=== PATIENT | male | born 1950 | race Caucasian/White ===

== ENCOUNTER 2024-09-01 03:38 | Emergency (ER) | payer MEDICARE, OTHER, SELFPAY ==
[2024-09-01] VITALS (19 sets, daily range): BP systolic 135–160; BP diastolic 70–99; PULSE 74–109; RESP 12–23; TEMP 36.4–36.7; O2SAT 91–99
--- OUTSIDE RECORDS SUMMARY | 2024-09-01 03:40 | XMS_ITS | Data Portability ---
Author Organization [facility], Main Office Address [address] [place] [address] Assessment Encounter Date Assessment Date Assessment LastModified by Organization Details LastModified Time 04/30/2023 04/30/2023 Assessment: Severe OSAHS, AHI = 32 PLMD Lumbar spondylosis Plan: The following were reviewed and explained to the patient: primary care/referral note [facility] split night sleep study 09/10/22 AHI = 32, REM AHI = 37, Respironics large DreamWisp nasal mask @ 11 cmH2O, PLMI = 10 Non-pharmacologi c therapy options for periodic limb movement disorder include avoidance of aggravating drugs and substances, mental alerting activities, short daily hemodialysis for patients in renal failure, exercise, leg massage, stretching calf muscles, use of a weighted blanket and applied heat. Patient will cut down on caffeine intake. We will check BUN, Creatinine, Vitamin E, Vitamin B12, RBC folate, Iron, TIBC, Ferritin, ESR, Magnesium, Hgb and Hct levels. PAP compliance downloaded and interpreted x 20 minutes. Data reviewed and explained to the patient. Average apnea/hypopnea index (AHI) is 7.9. Patient used PAP > 4 hours 0% of the time. PAP is set at 13 cmH2O. PAP will be reset at 9-20 cmH2O. Oxygen supplementation: none Keep humidity at 5. Keep EPR at + 2. Patient is benefiting from PAP therapy. Encouraged patient to maintain PAP use more than 70% of the time. Statement of PAP use and benefits will be sent to the home care store. Unless his low back pain is addressed, he doesn't foresee using his CPAP for more hours. Educated the patient on problems and solutions associated with positive airway pressure (PAP) use. Difficulty tolerating pressure, mask leaks, intolerance of interface, nasal congestion, claustrophobic response, dry mouth, and unintentional mask removal during sleep were covered. Provided the patient with a list of local home care stores where positive airway pressure (PAP) units, accoutrement, and services are available. Home care store selection is based on patient's insurance carrier. Patient will setup an appointment with [facility] for supplies and pressure adjustments. A major predictor of success with use of PAP is follow-up with both the respiratory supplier and the treating physician. The respiratory supplier optimally will follow-up within two weeks after starting use while the treating physician optimally will follow-up within 90 days after starting therapy to assess adherence and effectiveness of treatment. The download results can show the treating physician information about adherence to treatment, residual AHI while on treatment and presence of large mask leakage. This information is especially helpful if the patient has residual sleepiness despite treatment. General information on sleep disordered breathing, evaluation of sleep disordered breathing, treatment with PAP therapy, and living with PAP therapy were covered. We discussed with the patient the impact of weight on: Sleep disordered breathing Hypertension Hyperlipidemia DM LAUREN Lumbosacral spondylosis We discussed with the patient the benefit of PAP therapy on: Sleep disordered breathing Rhinitis Hypertension Hyperlipidemia DM LAUREN Educated the patient on sleep hygiene measures. Relaxing rituals to rest easy, understanding foods with positive and negative impact on sleep, creating a peaceful sleep environment, timing of exercise, using herbal sleep aids, and practicing sleep-friendly meditation were covered. To determine how much sleep is needed, the patient will assess where he falls on the spectrum, examine what lifestyle factor such as stress is affecting the quality and quantity of sleep. In general, adults need 7-9 hours of sleep. Educated the patient regarding foods that promote sleep. These include but are not limited to cherries, bananas, toast, oatmeal, and warm milk. Educated the patient regarding foods and drinks to avoid before bedtime. These include but are not limited to aged cheese, chocolate, spicy foods, tomato-based sauces, soy, ginseng tea and processed meat. Advocated influenza vaccination annually and pneumonia vaccination VANDANA. Advocated weight loss through diet and exercise. Patient's ideal body weight according to height and gender is up to 180 lbs. Encouraged patient to adjust caloric intake to maintain/achieve ideal body weight, emphasizing on fruits, vegetables, whole grains, and fat-free or low-fat products. These include lean meats, poultry, fish, beans, eggs, and nuts and foods that are low in saturated fats, trans-fats, cholesterol, salt (sodium), and glycemic index. Stressed the importance of regular exercise up to the patient's capacity limits. In this case, we recommend 20 min daily walking, 2 days a week of resistance training. Patient to monitor BP daily and bring records to PCP for further management. Follow-up: 3 weeks Not available 04/30/2023 10:54:11 05/27/2023 05/27/2023 Assessment: Severe OSAHS, AHI = 32 PLMD Lumbar spondylosis Plan: The following were reviewed and explained to the patient: Lab data 04/30/23 [facility] split night sleep study 09/10/22 AHI = 32, REM AHI = 37, Respironics large DreamWisp nasal mask @ 11 cmH2O, PLMI = 10 Non-pharmacologi c therapy options for periodic limb movement disorder include avoidance of aggravating drugs and substances, mental alerting activities, short daily hemodialysis for patients in renal failure, exercise, leg massage, stretching calf muscles, use of a weighted blanket and applied heat. Patient will cut down on caffeine intake. BUN, Creatinine, Vitamin E, Vitamin B12, RBC folate, Iron, TIBC, Ferritin, ESR, Magnesium, Hgb and Hct levels are within normal limits. We will continue gabapentin at 100 mg nightly at bedtime c/o PCP. PAP compliance downloaded and interpreted x 20 minutes. Data reviewed and explained to the patient. Average apnea/hypopnea index (AHI) is 1.6. Patient used PAP > 4 hours 0% of the time. PAP is set at 9-20 cmH2O. PAP will be reset at 9 cmH2O. Oxygen supplementation: none Keep humidity at 5. Keep EPR at + 2. Keep ramp off. Patient is benefiting from PAP therapy. Encouraged patient to maintain PAP use more than 70% of the time. Statement of PAP use and benefits will be sent to the home care store. Unless his low back pain is addressed, he doesn't foresee using his CPAP for more hours. Educated the patient on problems and solutions associated with positive airway pressure (PAP) use. Difficulty tolerating pressure, mask leaks, intolerance of interface, nasal congestion, claustrophobic response, dry mouth, and unintentional mask removal during sleep were covered. Provided the patient with a list of local home care stores where positive airway pressure (PAP) units, accoutrement, and services are available. Home care store selection is based on patient's insurance carrier. Patient will setup an appointment with [facility] for supplies and pressure adjustments. A major predictor of success with use of PAP is follow-up with both the respiratory supplier and the treating physician. The download results can show the treating physician information about adherence to treatment, residual AHI while on treatment and presence of large mask leakage. This information is especially helpful if the patient has residual sleepiness despite treatment. General information on sleep disordered breathing, evaluation of sleep disordered breathing, treatment with PAP therapy, and living with PAP therapy were covered. We discussed with the patient the impact of weight on: Sleep disordered breathing Hypertension Hyperlipidemia DM LAUREN Lumbosacral spondylosis We discussed with the patient the benefit of PAP therapy on: Sleep disordered breathing Rhinitis Hypertension Hyperlipidemia DM LAUREN Educated the patient on sleep hygiene measures. Relaxing rituals to rest easy, understanding foods with positive and negative impact on sleep, creating a peaceful sleep environment, timing of exercise, using herbal sleep aids, and practicing sleep-friendly meditation were covered. To determine how much sleep is needed, the patient will assess where he falls on the spectrum, examine what lifestyle factor such as stress is affecting the quality and quantity of sleep. In general, adults need 7-9 hours of sleep. Educated the patient regarding foods that promote sleep. These include but are not limited to cherries, bananas, toast, oatmeal, and warm milk. Educated the patient regarding foods and drinks to avoid before bedtime. These include but are not limited to aged cheese, chocolate, spicy foods, tomato-based sauces, soy, ginseng tea and processed meat. Advocated influenza vaccination annually and pneumonia vaccination VANDANA. Advocated weight loss through diet and exercise. Patient's ideal body weight according to height and gender is up to 180 lbs. Encouraged patient to adjust caloric intake to maintain/achieve ideal body weight, emphasizing on fruits, vegetables, whole grains, and fat-free or low-fat products. These include lean meats, poultry, fish, beans, eggs, and nuts and foods that are low in saturated fats, trans-fats, cholesterol, salt (sodium), and glycemic index. Stressed the importance of regular exercise up to the patient's capacity limits. In this case, we recommend 20 min daily walking, 2 days a week of resistance training. Patient to monitor BP daily and bring records to PCP for further management. Follow-up: 1 year, May 2024 Not available 05/27/2023 12:11:45 05/31/2024 05/31/2024 Assessment: Severe OSAHS, AHI = 32 PLMD Lumbar spondylosis Plan: The following were reviewed and explained to the patient: Lab data 04/30/23 [facility] split night sleep study 09/10/22 AHI = 32, REM AHI = 37, Respironics large DreamWisp nasal mask @ 11 cmH2O, PLMI = 10 Non-pharmacologi c therapy options for periodic limb movement disorder include avoidance of aggravating drugs and substances, mental alerting activities, short daily hemodialysis for patients in renal failure, exercise, leg massage, stretching calf muscles, use of a weighted blanket and applied heat. Patient will cut down on caffeine intake. BUN, Creatinine, Vitamin E, Vitamin B12, RBC folate, Iron, TIBC, Ferritin, ESR, Magnesium, Hgb and Hct levels are within normal limits. We will continue gabapentin at 100 mg nightly at bedtime c/o PCP. PAP compliance downloaded and interpreted x 20 minutes. Data reviewed and explained to the patient. Average apnea/hypopnea index (AHI) is 3.1. Patient used PAP > 4 hours 32% of the time. PAP is set at 9 cmH2O. PAP will remain at 9 cmH2O. Keep ramp off. 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 Keep humidity level at 5. Oxygen supplementation: none Patient is benefiting from PAP therapy. Encouraged patient to maintain PAP use more than 70% of the time. Statement of PAP use and benefits will be sent to the home care store. Unless his low back pain is addressed, he doesn't foresee using his CPAP for more hours. Educated the patient on problems and solutions associated with positive airway pressure (PAP) use. Difficulty tolerating pressure, mask leaks, intolerance of interface, nasal congestion, claustrophobic response, dry mouth, and unintentional mask removal during sleep were covered. Provided the patient with a list of local home care stores where positive airway pressure (PAP) units, accoutrement, and services are available. Home care store selection is based on patient's insurance carrier. Patient will setup an appointment with [facility] for supplies and pressure adjustments. A major predictor of success with use of PAP is follow-up with both the respiratory supplier and the treating physician. The download results can show the treating physician information about adherence to treatment, residual AHI while on treatment and presence of large mask leakage. This information is especially helpful if the patient has residual sleepiness despite treatment. General information on sleep disordered breathing, evaluation of sleep disordered breathing, treatment with PAP therapy, and living with PAP therapy were covered. We discussed with the patient the impact of weight on: Sleep disordered breathing Hypertension Hyperlipidemia DM LAUREN Lumbosacral spondylosis We discussed with the patient the benefit of PAP therapy on: Sleep disordered breathing Rhinitis Hypertension Hyperlipidemia DM LAUREN Educated the patient on sleep hygiene measures. Relaxing rituals to rest easy, understanding foods with positive and negative impact on sleep, creating a peaceful sleep environment, timing of exercise, using herbal sleep aids, and practicing sleep-friendly meditation were covered. To determine how much sleep is needed, the patient will assess where he falls on the spectrum, examine what lifestyle factor such as stress is affecting the quality and quantity of sleep. In general, adults need 7-9 hours of sleep. Educated the patient regarding foods that promote sleep. These include but are not limited to cherries, bananas, toast, oatmeal, and warm milk. Educated the patient regarding foods and drinks to avoid before bedtime. These include but are not limited to aged cheese, chocolate, spicy foods, tomato-based sauces, soy, ginseng tea and processed meat. Advocated influenza vaccination annually and pneumonia vaccination VANDANA. Advocated weight loss through diet and exercise. Patient's ideal body weight according to height and gender is up to 180 lbs. Encouraged patient to adjust caloric intake to maintain/achieve ideal body weight, emphasizing on fruits, vegetables, whole grains, and fat-free or low-fat products. These include lean meats, poultry, fish, beans, eggs, and nuts and foods that are low in saturated fats, trans-fats, cholesterol, salt (sodium), and glycemic index. Stressed the importance of regular exercise up to the patient's capacity limits. In this case, we recommend 20 min daily walking, 2 days a week of resistance training. Patient to monitor BP daily and bring records to PCP for further management. Follow-up: 1 year, May 2025 Not available 05/31/2024 11:39:24 Plan of Treatment Reminders Order Date Submit Date Provider Last Modified By Organization Details Last Modified Time Details Appointments None recorded. Lab iron + TIBC + ferritin, serum 2023 024 MANPREET [facility] ([facility]), [address] [place], [address], 4 15:29:13 folate, RBC 2023 024 [email or web address] [facility] ([facility]), [address] [place], [address], 4 12:35:28 vitamin B12, serum 2023 024 [email or web address] 25 [facility] ([facility]), [address] [place], [address], 4 12:35:28 ESR (erythrocyt e sedimentati on rate), blood 2023 024 [email or web address] 25 [facility] (Lab), [address] [place], [address], 4 12:35:28 hemoglobin + hematocrit, blood 2023 024 [email or web address] 25 [facility] (Lab), [address] [place], [address], 4 12:35:29 bun (blood urea nitrogen), serum or plasma 2023 024 [email or web address] 25 [facility] ([facility]), [address] [place], [address], 4 12:35:29 creatinine, serum or plasma 2023 024 [email or web address] 25 [facility] ([facility]), [address] [place], [address], 4 12:35:29 magnesium, serum or plasma 2023 024 [email or web address] 25 [facility] ([facility]), [address] [place], [address], 12:35:29 vitamin E, serum 2023 024 MANPREET [facility] ([facility]), [address] [place], [address], 18:15:59 Referral None recorded. Procedures None recorded. Surgeries None recorded. Imaging None recorded. Medication Orders None recorded. Patient TargetsNo targets recorded. Patient InstructionsNo instructions recorded. Reason for Referral None Reported. Results Created Date Observation Date Name Description Value Unit Range Abnormal Flag Note LastModifiedBy Organization Detail LastModifiedTime Result Notes None recorded. Problems Name Problem SNOMED Code Status Onset Date Resolution Date Notes Provider Name and Address Organization Details Recorded Time Periodic limb movement disorder 265481533 Active 2023 Arya Scott MD [address] [place], [address], [employer] 10:29:57 Obstructive sleep apnea syndrome 73797981 Active 2023 Arya Scott MD [address], [place], [address], [employer] 10:30:34 Notes:Medical History: Bilat eral hearing loss/tinnitus Rhinitis Obesity with severe OSAHS, AHI = 32, 09/10/22, [facility] Hypertension Hyperlipidemia T2DM with neuropathy LAUREN PLMD Vit D deficiency Lumbosacral spondylosis Bilateral acromioclavicular OA Procedure History: Left 3rd finger surgery 1974 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 Medical Equipment None Reported. Allergies Allergen ID Allergen Name Allergen Category Reaction Reaction Severity Criticality Documentation Date Start Date Code Code System Note Provider Name and Address Organization Details Recorded Time 85134 Augmentin medicatio n Not available Not available Not available 04/29/2023 17592 2 RxNorm Arya Scott MD [address], [place], [address], [employer] 19:50:47 05482 morphine medicatio n Not available Not available Not available 04/29/2023 7052 RxNorm Arya Scott MD [address] [facility], [facility] [address], [place], [address], [facility] 19:50:54 Medications Name Sig Start Date Stop Date Status Note LastModified by Organization Details LastModified Time pravastatin 40 mg tablet active Not Available Not Available Not Available amlodipine 10 mg tablet TAKE 1 TABLET BY MOUTH EVERY DAY active Not Available Not Available No t Available metformin 1,000 mg tablet Take 1 tablet twice a day by oral route. active Not Available Not Available No t Available gabapentin 100 mg capsule Take 1 capsule every day by oral route. active Not Available Not Available No t Available losartan 100 mg tablet TAKE 1 TABLET BY MOUTH EVERY DAY active Not Available Not Available No t Available pravastatin 05/26 completed Not Available Not Available Not Available Vitamin D3 active Not Available Not Av ailable Not Available B12 active Not Available Not Availa ble Not Available Ozempic 1 mg/dose (4 mg/3 mL) subcutaneou s pen injector INJECT 1 MG UNDER THE SKIN WEEKLY. 04/29 completed Not Available Not Available Not Available Ozempic 2 mg/dose (8 mg/3 mL) subcutaneou s pen injector ADMINISTE R 2 MG UNDER THE SKIN WEEKLY 05/31 completed Not Available Not Available Not Available Ozempic 0.25 mg or 0.5 mg (2 mg/3 mL) subcutaneou s pen injector 04/29 completed Not Available Not Available Not Available Vitals Date Recorded Heart rate Respiratory rate Provider N ivette and Address Organization Details Last Updated DateTime 04/30/2023 78 /min 15 /min Arya Scott MD [address], [facility] [address], [place], [address], [facility] 04/30/2023 10:54:54 Date Recorded Body weight Body mass index (BMI) Body height Heart rate Oxygen saturation Oxygen saturation in Arterial blood by Pulse oximetry Body temperature Systolic And Diastolic Provider Name and Address Organization Details Last Updated DateTime 4 458899. 57 g 38.2 kg/m2 177.8 cm 78 /min 97 % 97 % 98 [degF] 124/70 mm[Hg] Mayi Ortiz MA [facility] 4 10:30:17 Date Recorded Oxygen saturation Oxygen saturation in Arterial blood by Pulse oximetry Heart rate Respiratory rate Provider Name and Address Organization Details Last Updated DateTime 05/27/2023 96 % 96 % 82 /min 15 /min Arya Scott MD [address] [employer], [address], [place], [address], [employer] 4 12:12:48 Date Recorded Body height Body mass index (BMI) Body weight Body temperature Heart rate Systolic And Diastolic Provider Name and Address Organization Details Last Updated DateTime 4 177.8 cm 36.5 kg/m2 345845. 18 g 97.6 [degF] 82 /min 122/68 mm[Hg] Cat Knight MA [facility] 4 11:28:56 Date Recorded Body mass index (BMI) Body height Heart rate Respiratory rate Provider Name and Address Organization Details Last Updated DateTime 05/31/2024 41.2 kg/m2 177.8 cm 83 /min 15 /min Arya Scott MD [address] [employer], [address], [place], [address], [employer] 05/31/2024 11:45:06 Date Recorded Body weight Heart rate Oxygen saturation Oxygen saturation in Arterial blood by Pulse oximetry Body temperature Systolic And Diastolic Provider Name and Address Organization Details Last Updated DateTime 5 644584. 01 g 83 /min 96 % 96 % 97.9 [degF] 120/70 mm[Hg] Mayi Ortiz MA [facility] 5 11:19:20 Social History Question Answer Notes LastModified by Organization Details LastModified Time Tobacco Smoking Status Former Smoker Mayi Ortiz [facility], [employer] 04/30/2023 10:26:39 What Is Your Level Of Caffeine Consumption? Moderate Information not available 04/30/2023 In The 14 Days Before Symptom Onset, Have You Had Close Contact With A Laboratory-assumption general medical centered COVID-19 While That Case Was Ill? No Information not available 04/30/2023 In The 14 Days Before Symptom Onset, Have You Had Close Contact With A Person Who Is Under Investigation For COVID-19 While That Person Was Ill? No Information not available 04/30/2023 What Type Of Diet Are You Following? REGULAR Information not available 04/30/2023 Do You Have An Electrostatic Air Filter? No Information not available 04/30/2023 When Did You Quit Smoking? 11-15yearssincelas tcigarette Information not available 04/30/2023 Do You Have A Humidifier? No Information not available 04/30/2023 Where Do You Live? [email or web address] Information not available 05/27/2023 Do You Have Moisture Problems In Your Home? No Information not available 04/30/2023 What Was The Date Of Your Most Recent Tobacco Screening? 05/31/2024 Information not available 05/31/2024 Do You Have Any Pets? No Information not available 04/30/2023 Do You Use Your Seat Belt Or Car Seat Routinely? Yes Information not available 04/30/2023 Do You Have Smoke And Carbon Monoxide Detectors In Your Home? Yes Information not available 04/30/2023 Are You Passively Exposed To Smoke? No Outside Only Information not available 04/30/2023 Do You Use Sunscreen Routinely? No Information not available 04/30/2023 Have You Recently Traveled Abroad? No Information not available 04/30/2023 Do You Have Any Dietary Restrictions? No Information not available 04/30/2023 Sex: Unknown Functional Status Question Answer Note LastModified by Organizat ion Details LastModified Time Do you use any illicit or recreational drugs? No Information not available 04/30/2023 What is your level of alcohol consumption? None Information not available 04/30/2023 Are you currently employed? No retired Information not available 04/30/2023 Have you been exposed to chemicals or toxins? Yes not that aware of Information not available 04/30/2023 What is your exercise level? Occasional Information not available 04/30/2023 Mental Status Question Answer Note LastModified by Organization D etails LastModified Time Do you feel stressed (tense, restless, nervous, or anxious, or unable to sleep at night)? [id number] Information not available 04/30/2023 Family History Relationship Description Onset Age of this Age Resolved Age Notes LastModified by Organization Details LastModified Time Paternal Grandmother Diabetes mellitus [email or web address] Not available 2023 10:39:56 Paternal Grandfather Glaucoma [email or web address] Not available 04/29 10:40:06 Father Diabetes mellitus [email or web address] Not available 2023 10:40:46 Mother Dementia [email or web address] Not available 0 04/30/2023 10:41:13 Brother Chronic obstructive pulmonary disease [email or web address] Not available 2023 10:41:32 Brother Partial deafness [email or web address] Not available 2023 10:41:52 Medical History No medical history recorded. Past Encounters Encounter ID Performer Location Encounter Start Date Encounter Closed Date Diagnosis/Indication Diagnosis SNOMED-CT Code Diagnosis ICD10 Code Diagnosis Note [id number] Arya Scott MD [facility] [place] [id number] 04/30/2023 10:02:48 05/01/2023 12:01:13 Periodic limb movement disorder 668898326 G47.61 D50.8 E83.42 Obstructiv e sleep apnea syndrome 77771811 G47.33 [id number] [facility] [id number] 05/27/2023 10:59:22 05/28/2023 09:31:59 Obstructive sleep apnea syndrome [id number] G47.33 Periodic l imb movement disorder [id number] G47.61 D50.8 E83.42 [id number] MD MARE [place] [id number] 0 05/31/2024 10:58:32 06/02/2024 12:58:28 Obstructive sleep apnea syndrome [id number] G47.33 Periodic l imb movement disorder [id number] G47.61 Health Concerns Section Related Observation LastModified by Organization Detai ls LastModified Time None Recorded Concern Status LastModified by Organization Details LastModified Time None Recorded Advance Directives Directive None Recorded Payers Insurance Date Sequence Insurance Name Policy Number Policy Hargrove Covered Member ID Hargrove Member ID Guarantor Name 05/31/2024 [facility] Gerber Nova [id number] Gerber Nova Notes Date Note Type Note Provider Name and Address Organization Details Recorded Time 04/30/2023 text/html Primary care/Ref erring provider: Effie Tafoya MD CC: I only use the CPAP when I nap in the recliner during the afternoon. I would not use it at night when I am in bed because I moved around a lot from lumbosacral spondylosis. During the [facility] split night sleep study on 09/10/22, AHI = 32, REM AHI = 37, PLMI = 10. At home since, the patient uses a ResMed AirSense 11 autoset unit with heated humidification. The patient does not need the ramp to start low and go up slowly on the pressure anymore. There is no xerostomia in a.m. There is no hose/mask condensation with water.The patient wears a [facility] large Eson 2 nasal mask without chin strap. There is no claustrophobia, no nostril/nose bridge irritation, no facial rash, no facial numbness, no nosebleeding. The patient feels more refreshed upon waking and daytime alertness is improved. Energy levels are sustained until noon. At home, the patient sleeps from 8:30 pm to 4:30 am and wakes up without an alarm. Snoring: heavy, since 1970s.Snorting: noChoking: noCoughing: yesGasping: noGagging: noSighing: noWitnessed apnea: yesTwitching or jerking of leg(s), arm(s), body, head: yesTeeth grinding: noTeeth clenching: noSleeptalking: noSleepwalking: noSleep crying: noBedwetting: noTongue/lip/gum/cheek biting: noSleeping with open mouth: yesSleep paralysis: noHypnagogic hallucinations: noHypnopompic hallucinations: noVivid dreams: yesDifficulty with sleep onset: noDifficulty with sleep maintenance: yesSleep interruptions: bodily movements, bodily achesPatient wakes up with: fatigueDaytime cataplexy: noMorning hypersomnolence: yesAfternoon hypersomnolence: yesCaffeine sources in diet: coffee 1 cup per season, soda 1 can per day Associated medical and psychiatric conditions:Congestive heart failure: noCoronary artery disease: noMyocardial infarction: noHypertension: yesStroke: noBronchial asthma: noChronic obstructive pulmonary disease: noDepression: noBipolar disorder: noAnxiety: noPanic disorder: noPosttraumatic stress disorder: noAttention deficit and hyperactivity disorder: noObsessive Compulsive disorder: noSchizophrenia: noSchizoaffective disorder: noPersonality disorder: noChronic analgesic use: noChronic sedative/hypnotic use: no EPWORTH SLEEPINESS SCALE (ESS) CHANCE OF DOZING SCORE0 = would never doze1 = slight chance of dozing2 = moderate chance of dozing3 = high chance of dozing SITUATION AND CHANCE OF DOZINGSitting and reading - 1Watching television - 3Sitting inactive in a public place (e.g. a theater or meeting) - 2As a passenger in a car for an hour without a break - 0Lying down to rest in the afternoon when circumstances permit - 2Sitting and talking to someone - 0Sitting quietly after lunch without alcohol - 3In a car, while stopped for a few minutes in the traffic - 0TOTAL SCORE 11Subjectively, patient has a moderate chance of dozing. Arya Scott MD [address] [place] [address], [place], [address], [facility] 04/30/2023 10:59:41 05/27/2023 text/html Primary care/Ref erring provider: Effie Tafoya MD CC: I use the CPAP when I nap in the recliner during the afternoon. I try to use it at night when I am in bed but I moved around a lot from lumbosacral spondylosis. During the [facility] split night sleep study on 09/10/22, AHI = 32, REM AHI = 37, PLMI = 10. At home since 04/30/23, the patient uses a ResMed AirSense 11 autoset unit with heated humidification. The patient does not need the ramp to start low and go up slowly on the pressure anymore. There is no xerostomia in a.m. There is no hose/mask condensation with water.The patient wears a [employer] [facility] large Eson 2 nasal mask without chin strap. There is no claustrophobia, no nostril/nose bridge irritation, no facial rash, no facial numbness, no nosebleeding. The patient feels more refreshed upon waking and daytime alertness is improved. Energy levels are sustained until noon. At home, the patient sleeps from 8:30 pm to 4:30 am and wakes up without an alarm. Snoring: heavy, since 1970s.Snorting: noChoking: noCoughing: yesGasping: noGagging: noSighing: noWitnessed apnea: yesTwitching or jerking of leg(s), arm(s), body, head: yesTeeth grinding: noTeeth clenching: noSleeptalking: noSleepwalking: noSleep crying: noBedwetting: noTongue/lip/gum/cheek biting: noSleeping with open mouth: yesSleep paralysis: noHypnagogic hallucinations: noHypnopompic hallucinations: noVivid dreams: yesDifficulty with sleep onset: noDifficulty with sleep maintenance: yesSleep interruptions: bodily movements, bodily achesPatient wakes up with: fatigueDaytime cataplexy: noMorning hypersomnolence: yesAfternoon hypersomnolence: yesCaffeine sources in diet: coffee 1 cup per season, soda 1 can per day Associated medical and psychiatric conditions:Congestive heart failure: noCoronary artery disease: noMyocardial infarction: noHypertension: yesStroke: noBronchial asthma: noChronic obstructive pulmonary disease: noDepression: noBipolar disorder: noAnxiety: noPanic disorder: noPosttraumatic stress disorder: noAttention deficit and hyperactivity disorder: noObsessive Compulsive disorder: noSchizophrenia: noSchizoaffective disorder: noPersonality disorder: noChronic analgesic use: noChronic sedative/hypnotic use: no EPWORTH SLEEPINESS SCALE (ESS) CHANCE OF DOZING SCORE0 = would never doze1 = slight chance of dozing2 = moderate chance of dozing3 = high chance of dozing SITUATION AND CHANCE OF DOZINGSitting and reading - 3Watching television - 3Sitting inactive in a public place (e.g. a theater or meeting) - 2As a passenger in a car for an hour without a break - 1Lying down to rest in the afternoon when circumstances permit - 3Sitting and talking to someone - 0Sitting quietly after lunch without alcohol - 3In a car, while stopped for a few minutes in the traffic - 0TOTAL SCORE 15Subjectively, patient has a moderate chance of dozing. Arya Scott MD [address] [place] [address], [place] [address], [place], [address], [facility] 05/27/2023 12:13:17 05/31/2024 text/html Primary care/Ref erring provider: Effie Tafoya MD CC: I use the CPAP when I nap in the recliner during the afternoon. I try to use it at night when I am in bed but I moved around a lot from lumbosacral spondylosis. During the [facility] split night sleep study on 09/10/22, AHI = 32, REM AHI = 37, PLMI = 10. At home since 04/30/23, the patient uses a ResMed AirSense 11 autoset unit with heated humidification. The patient does not need the ramp to start low and go up slowly on the pressure anymore. There is no xerostomia in a.m. There is no hose/mask condensation with water.The patient wears a [employer] [facility] large Eson 2 nasal mask without chin strap. There is no claustrophobia, no nostril/nose bridge irritation, no facial rash, no facial numbness, no nosebleeding. The patient feels more refreshed upon waking and daytime alertness is improved. Energy levels are sustained until noon. At home, the patient sleeps from 8:30 pm to 4:30 am and wakes up without an alarm. Snoring: heavy, since 1970s.Snorting: noChoking: noCoughing: yesGasping: noGagging: noSighing: noWitnessed apnea: yesTwitching or jerking of leg(s), arm(s), body, head: yesTeeth grinding: noTeeth clenching: noSleeptalking: noSleepwalking: noSleep crying: noBedwetting: noTongue/lip/gum/cheek biting: noSleeping with open mouth: yesSleep paralysis: noHypnagogic hallucinations: noHypnopompic hallucinations: noVivid dreams: yesDifficulty with sleep onset: noDifficulty with sleep maintenance: yesSleep interruptions: bodily movements, bodily achesPatient wakes up with: fatigueDaytime cataplexy: noMorning hypersomnolence: yesAfternoon hypersomnolence: yesCaffeine sources in diet: coffee 1 cup per season, soda 1 can per day Associated medical and psychiatric conditions:Congestive heart failure: noCoronary artery disease: noMyocardial infarction: noHypertension: yesStroke: noBronchial asthma: noChronic obstructive pulmonary disease: noDepression: noBipolar disorder: noAnxiety: noPanic disorder: noPosttraumatic stress disorder: noAttention deficit and hyperactivity disorder: noObsessive Compulsive disorder: noSchizophrenia: noSchizoaffective disorder: noPersonality disorder: noChronic analgesic use: noChronic sedative/hypnotic use: no EPWORTH SLEEPINESS SCALE (ESS) CHANCE OF DOZING SCORE0 = would never doze1 = slight chance of dozing2 = moderate chance of dozing3 = high chance of dozing SITUATION AND CHANCE OF DOZINGSitting and reading - 2Watching television - 3Sitting inactive in a public place (e.g. a theater or meeting) - 2As a passenger in a car for an hour without a break - 0Lying down to rest in the afternoon when circumstances permit - 2Sitting and talking to someone - 0Sitting quietly after lunch without alcohol -1In a car, while stopped for a few minutes in the traffic - 0TOTAL SCORE 10Subjectively, patient has a moderate chance of dozing. Arya Scott MD [address] [facility], [facility] [address], [place], [address], [facility] 05/31/2024 11:45:14
[2024-09-01 03:57] LABS: Hematocrit 38.9 % (42.0-52.0); Hemoglobin 12.6 g/dL (14.0-18.0); Immature Granulocyte Percent A 0.5 % (0-0.5); Lymphocytes Absolute Auto 2.01 K/mm3 (0.9-3.2); Mean Corpuscular HGB Conc 32.4 g/dl (32-36); Mean Corpuscular Hemoglobin 28.5 pg (26-34); Mean Corpuscular Volume 88.0 fl (80-100); Nucleated Red Blood Cells Absolute Auto 0.000 K/mm3 (0.0-0.012); Nucleated Red Blood Cells Perc 0.0 % (0.0-0.2); Platelet Count Result 322 k/mm3 (150-375); Red Blood Count 4.42 M/mm3 (4.6-6.20); White Blood Count 10.8 K/mm3 (4.5-10.0)
[2024-09-01 04:13] LABS: Alanine Aminotransferase 21 U/L (6-50); Albumin Level 4.5 g/dL (3.5-5.1); Alkaline Phosphatase 47 U/L (38-126); Anion Gap 12 mmol/L (4-12); Aspartate Amino Transferase 30 U/L (17-59); Bilirubin,Total 0.4 mg/dL (0.2-1.3); Blood Urea Nitrogen 20 mg/dL (9-20); Calcium 9.2 mg/dL (8.4-10.2); Carbon Dioxide 25 mmol/L (22-30); Chloride 101 mmol/L (98-107); Estimated CRCL calculation 54 ml/min; Estimated Glomerular Filt Rate 51; Glucose 152 mg/dL (65-110); Lipase 47 U/L (23-300); Magnesium 1.5 mg/dL (1.6-2.3); Potassium 4.1 mmol/L (3.4-5.0); Sodium 138 mmol/L (137-145); Total Protein 8.0 g/dL (6.3-8.2)
[2024-09-01] MEDS: SODIUM CHLORIDE 0.9% IV 1,000 ML 999 ML IV CONT (04:52)
[2024-09-01] MEDS: ONDANSETRON INJ 4 MG/2 ML VIAL IV PUSH (04:53)
[2024-09-01] MEDS: KETOROLAC 15 MG/ML VIAL (*BKC) IV PUSH (04:54)
[2024-09-01] MEDS: fentaNYL CITRATE INJ (*CRX) 100 MCG/2 ML VIAL 50 MCG IV PUSH (04:55)
[2024-09-01 05:15] LABS: Add Urine Microscopic? YES; Appearance Urine Cloudy (Clear); Glucose Urine UA Negative (Negative); Leukocyte Esterase Ur 2+ LEU/UL (Negative); Need Manual Microscopic Reviewed; Nitrate Urine Positive (Negative); Non Pathogenic Casts 0-2; Specific Grav Ur 1.025 (1.001-1.035)
--- NOTE | 2024-09-01 05:29 | ED.GENADULT ---
HPI - General Adult General Chief complaint: Urogenital-Male Stated complaint: L SIDED KIDNEY PAIN Time Seen by Provider: 09/01/24 03:39 History of Present Illness HPI narrative: Patient is a 74-year-old male who presents to the emergency department this evening complaining of left-sided flank pain. Patient states that he has been dealing with this for the past 1 and half/2 weeks. Last week, patient started to develop some sudden-onset left flank pain. He was on vacation in [place] on a road trip and ended up going into an emergency department and was diagnosed with 3 mm stone and given pain medications. Two days later, patient ended up in a different emergency department again and at that time he was admitted and had a stent placed by Urology. Patient then returned back home to [place] and continued to have pain so he went [facility] and had a repeat CT scan this past Friday. Scan showed the stent is in place, however, patient did have UTI and was placed on antibiotics which he is currently taking. The urologist told the patient he believes the pain that he is having is from ureteral spasms and is currently deciding if he wants to take out the stent or not. Patient states that he has waiting for a call from the [facility] to set up an appointment but overnight he started to have pain again that was not controlled by the Bainbridge that he had at home which he was prescribed. Denies any fevers or chills. Admits that he is currently still taking the antibiotic that he was prescribed for the active UTI that he has. Denies any additional symptoms or concerns. Related Data Home Medications ?Medication ?Instructions ?Recorded ?Confirmed ?Last Taken ?Type amlodipine 10 mg tablet 10 mg PO 06/28/21 07/14/24 Unknown History cholecalciferol (vitamin D3) 25 25 mcg PO DAILY 06/28/21 07/14/24 Unknown History mcg (1,000 unit) capsule losartan 100 mg tablet 100 mg PO 06/28/21 07/14/24 Unknown History omeprazole 20 mg capsule,delayed 20 mg PO 06/28/21 07/14/24 Unknown History release pravastatin 40 mg tablet 40 mg PO 07/03/22 07/14/24 Unknown History carbidopa 25 mg-levodopa 100 mg 1 tablet PO QHS 01/21/24 07/14/24 Unknown History tablet gabapentin 300 mg/6 mL (6 mL) oral 300 mg PO QHS 01/21/24 07/14/24 Unknown History solution metformin 1,000 mg tablet mg PO 01/21/24 07/14/24 Unknown History Allergies Allergy/AdvReac Type Severity Reaction Status Date / Time amoxicillin Allergy Unknown Rash Verified 09/01/24 03:51 atenolol Allergy Unknown cough Verified 09/01/24 03:51 chlorthalidone (Tenoretic) Allergy Unknown cough Verified 09/01/24 03:51 morphine Allergy Unknown Rash Verified 09/01/24 03:51 AMOXICILLIN TRIHYDRATE Allergy Mild rash Uncoded 09/01/24 03:51 POTASSIUM CLAVULANATE Allergy Mild rash Uncoded 09/01/24 03:51 Review of Systems Review of Systems: All systems are reviewed and are negative unless stated otherwise in the HPI. [facility] Past Medical History Medical History Unspecified hearing loss Primary osteoarthritis of left shoulder Degeneration of lumbar or lumbosacral intervertebral disc Chronic right shoulder pain Back pain with left-sided sciatica Family History Family History Grandparent Diabetes mellitus Other No family history of cardiovascular disease No family history of hypertension No family history of malignant neoplasm Social History Social History Smoking status: Never smoker Alcohol intake: former Substance use: never Substance use type: does not use Do You Feel Safe in your Home?: Yes Lack of Transportation: No Lack of Food: Never True Current Housing: I Have Housing Concerned About Future Housing: No Difficulty Paying Gas/Electric Bills: No Difficulty Paying for Meds: No Currently Unemployed: No Education: High School Diploma/GED Difficulty w/ Childcare or Family Care: No Exam Narrative: General: Alert, awake, afebrile, in moderate distress secondary to pain. HEENT: PERRL, no rhinorrhea, no post nasal drip, oropharynx clear. Neck: Trachea midline, no JVD, no lymphadenopathy. Cardiovascular: Regular rate and rhythm, no murmurs, rubs or gallops, no peripheral edema. Respiratory: Clear to auscultation bilaterally, no tachypnea, no wheezing, no rhonchi, no rubs, no respiratory distress. Abdomen: Soft, nontender, nondistended, no rebound, no guarding, no peritoneal signs. Musculoskeletal: No joint swelling or deformity, normal muscle tone. Skin: No rashes or petechia, no signs of infection. Psychiatric: Alert and oriented, normal behavior and judgment for situation. Neurological: Alert and oriented to person, place, and time. Follows all commands. No focal deficits, speech is clear and fluent. Course Vital Signs Vital signs: Vital Signs Temperature 98.0 F 09/01/24 03:43 Pulse Rate 109 H 09/01/24 03:43 Respiratory Rate 19 09/01/24 03:43 Blood Pressure 135/75 09/01/24 03:43 Pulse Oximetry 96 09/01/24 03:43 Temperature 98.0 F 09/01/24 03:43 Pulse Rate 83 09/01/24 05:15 Respiratory Rate 19 09/01/24 05:15 Blood Pressure 160/79 H 09/01/24 05:01 Pulse Oximetry 94 09/01/24 05:15 Medical Decision Making [facility] Narrative Medical decision making narrative: The patient was evaluated by myself in the emergency department. History is obtained from patient who is an independent historian and physical exam was performed. External medical records were reviewed at this time. IV was established and pertinent tests were ordered. Patient was administered 1 L IV fluid bolus with normal saline, 50 mEq of IV fentanyl and 50 mg of IV Toradol. Laboratory results obtained revealing no acute process. Urinalysis did reveal UTI with hematuria. Shared medical decision-making with patient regarding repeating CT scan was discussed at this time, patient agrees that he does not believe that a CT is indicated, he only came in for pain control. States that he is going to call the urologist through the [facility] today to set up his follow-up appointment. Differential diagnosis considerations include kidney stone, ureteral spasms, urinary tract infection, pyelonephritis. Comorbidities impacting this visit include recent ureteral stent placement. I have evaluated and discussed social determinants of health with the patient that could potentially impact subsequent diagnosis and treatment plans. On repeat assessment of the patient, reevaluation revealed that the patient is doing well and is in no acute distress. Patient symptoms have improved since he arrived to our emergency department. Repeat vital signs were all reviewed and noted to be stable. Differential diagnosis and treatment plan were discussed with the patient at bedside. Patient agrees with discussion and after shared medical decision making agrees with discharge. All questions were answered to the patient's satisfaction. Patient will follow up with his Urologist in 3-5 days. Patient was provided with strict return precautions and instructed to return to the emergency department if any new or worsening symptoms develop. The patient was discharged in stable condition. Vital Signs Vital Signs: Vital Signs Temperature 98.0 F 09/01/24 03:43 Pulse Rate 109 H 09/01/24 03:43 Respiratory Rate 19 09/01/24 03:43 Blood Pressure 135/75 09/01/24 03:43 Pulse Oximetry 96 09/01/24 03:43 Temperature 98.0 F 09/01/24 03:43 Pulse Rate 83 09/01/24 05:15 Respiratory Rate 19 09/01/24 05:15 Blood Pressure 160/79 H 09/01/24 05:01 Pulse Oximetry 94 09/01/24 05:15 Lab Data 09/01/24 03:51 09/01/24 03:51 Labs: Lab Results 09/01/24 09/01/24 Range/Units 03:51 04:52 WBC 10.8 H (4.5-10.0) K/mm3 RBC 4.42 L (4.6-6.20) M/mm3 Hgb 12.6 L (14.0-18.0) g/dL Hct 38.9 L (42.0-52.0) % MCV 88.0 (80-100) fl MCH 28.5 (26-34) pg MCHC 32.4 (32-36) g/dl RDW 13.3 (11.5-14.5) % Plt Count 322 (150-375) k/mm3 MPV 9.9 (7.4-10.4) fl Immature Gran % (Auto) 0.5 (0-0.5) % Neut % (Auto) 69.5 (45.5-73.1) % Lymph % (Auto) 18.6 (18.3-44.2) % [place] % (Auto) 7.0 (2.6-8.5) % Eos % (Auto) 3.4 (0-4.4) % Baso % (Auto) 1.0 (0.2-1.2) % Lymph # (Auto) 2.01 (0.9-3.2) K/mm3 [place] # (Auto) 0.8 H (0.1-0.6) K/mm3 Eos # (Auto) 0.4 H (0-0.3) K/mm3 Baso # (Auto) 0.1 (0.0-0.1) K/mm3 Abs Immat Gran (auto) 0.05 H (0.00-0.031) K/mm3 Absolute Neuts (auto) 7.5 H (1.3-6.7) K/mm3 Absolute Nucleated RBC 0.000 (0.0-0.012) K/mm3 Nucleated RBC % 0.0 (0.0-0.2) % Sodium 138 (137-145) mmol/L Potassium 4.1 (3.4-5.0) mmol/L Chloride 101 (98-107) mmol/L Carbon Dioxide 25 (22-30) mmol/L Anion Gap 12 (4-12) mmol/L BUN 20 (9-20) mg/dL Creatinine 1.38 H (0.7-1.3) mg/dL Estim Creat Clear Calc 54 ml/min Estimated GFR 51 L (59 - ) Glucose 152 H (65-110) mg/dL Calcium 9.2 (8.4-10.2) mg/dL Magnesium 1.5 L (1.6-2.3) mg/dL Total Bilirubin 0.4 (0.2-1.3) mg/dL AST 30 (17-59) U/L ALT 21 (6-50) U/L Alkaline Phosphatase 47 (38-126) U/L Total Protein 8.0 (6.3-8.2) g/dL Albumin 4.5 (3.5-5.1) g/dL Lipase 47 (23-300) U/L Urine Color Dark andrew (Yellow) Urine Appearance Cloudy H (Clear) Urine pH 5.0 (5.0-9.0) Ur Specific [place] 1.025 (1.001-1.035) Urine Protein 2+ H (Negative) mg/dL Urine Glucose (UA) Negative (Negative) mg/dL Urine Ketones Negative (Negative) mg/dL Ur Blood (Man) 3+ H (Negative) Urine Nitrate Positive H (Negative) Urine Bilirubin 1+ H (Negative) Urine Urobilinogen 1.0 (<2.0) mg/dL Add Ur Microanalysis Reviewed Leukocyte Esterase Rfl 2+ H (Negative) SHAWNA/UL Urine RBC >100 H (0-2) /hpf Urine WBC 21-50 H (0-3) /hpf Ur Squamous Epith Cells Occasional (Few) /hpf Urine Bacteria None seen /hpf Urine Casts 0-2 Discharge Plan Discharge Clinical Impression: Acute left flank pain, Acute UTI (urinary tract infection) Patient Disposition: Home Condition: Improved Instructions: Antibiotic Form, Urinary Tract Infection in Men (ED), Flank Pain (ED) Additional Instructions: Please follow-up with urologist within the next 3-5 days. Continue taking the antibiotics that you were prescribed for UTI. Use ibuprofen 400 mg as needed for pain as this may work better for you than the Bainbridge. . Return to the ED if any new or worsening symptoms develop. Patient Language: German Prescriptions: No Action pravastatin 40 mg tablet 40 mg PO metformin 1,000 mg tablet PO carbidopa-levodopa 25-100 mg tablet 1 tablet PO QHS gabapentin 300 mg/6 mL (6 mL) solution 300 mg PO QHS amlodipine 10 mg tablet 10 mg PO omeprazole 20 mg capsule,delayed release(DR/EC) 20 mg PO losartan 100 mg tablet 100 mg PO cholecalciferol (vitamin D3) 25 mcg (1,000 unit) capsule 25 mcg PO DAILY Follow-up/Referrals: Félix Layne MD [Primary Care Provider] - 3 Days Time of Disposition: 05:37
== END 2024-09-01 06:15 | disposition home or self-care (01) ==
PROVIDERS: Emergency Provider Emergency Medicine; PCP Family Medicine
DX: N39.0 Urinary tract infection, site not specified (principal); R10.9 Unspecified abdominal pain; M19.012 Primary osteoarthritis, left shoulder
CPT/HCPCS: 36415; 80053; 81001; 83690; 83735; 85025; 87086; 96361; 96374; 96375; 99284; J1885; J2405; J3010; J7030

== ENCOUNTER 2025-01-05 11:49 | Outpatient (CLI) | payer MEDICARE, OTHER, SELFPAY ==
[2025-01-05 13:53] LABS: MALB Creatinine Ratio 4.8 mg/g (0-30)
== END 2025-01-05 11:50 | disposition home or self-care (01) ==
LOC: ANHGOSHLAB 11:50
PROVIDERS: PCP Family Medicine; Visit Provider Nurse Practitioner Family
DX: E11.42 Type 2 diabetes mellitus with diabetic polyneuropathy (principal)
CPT/HCPCS: 82043